=== PATIENT | male | born 1965 | race African-American/Black ===

== ENCOUNTER 2022-11-21 01:43 | Inpatient (IN) | payer OTHER, SELFPAY ==
[2022-11-21] MEDS ORDERED: Morphine 4 MG/ML VIAL SLOW IVP PRN (05:54)
[2022-11-21 05:57] VITALS: BMI 26.4
[2022-11-21] MEDS: Lactated Ringer's 1,000 ML IV SCH ×2 (06:10→15:20)
[2022-11-21] MEDS: Ondansetron PF 4 MG/2 ML Vial IVP PRN ×3 (06:28→18:39)
[2022-11-21 07:12] LABS: SARS-CoV-2 NAA Rapid Test Not Detected (NotDetected)
[2022-11-21] MEDS ORDERED: hydrALAZINE 20 MG/ML VIAL SLOW IVP PRN (08:28)
[2022-11-21] MEDS ORDERED: TETANUS, DIPHTHERIA TOX,ADULT (TDVAX) 0.5 ML VIAL IM ONE (08:28)
[2022-11-21] MEDS ORDERED: MD-Gastroview 120 ML BOT ONE (09:05)
[2022-11-21] MEDS: Pantoprazole 40 MG VIAL IVP SCH (10:04)
[2022-11-21] MEDS: Ketorolac Tromethamine 30 MG/ML VIAL IVP PRN (10:09)
[2022-11-21] MEDS: Morphine 2 MG/ML VIAL SLOW IVP PRN ×2 (12:40→18:42)
[2022-11-21] MEDS ORDERED: Acetaminophen 500 MG TAB PO PRN (16:53)
[2022-11-21] MEDS ORDERED: Ketorolac Tromethamine 30 MG/ML VIAL IVP SCH (17:00)
[2022-11-21] MEDS: Tamsulosin HCl 0.4 MG CAP PO SCH (20:47)
[2022-11-21] MEDS: Methylcellulose 500 MG TAB PO SCH (20:47)
[2022-11-22] MEDS: Lactated Ringer's 1,000 ML IV SCH ×3 (00:18→10:18)
[2022-11-22 06:12] LABS: #Eosinphils 0.1 thou/uL (0.0-0.7); #Lymphocytes 1.1 thou/uL (1.20-3.40); #Monocytes 0.5 thou/uL (0.11-0.59); #Neutrophils 3.1 thou/uL (1.40-6.50); %Basophils 0.4 % (0.0-1.0); %Eosinophils 2.1 % (0.0-10.0); %Lymphocytes 22.9 % (21.0-51.0); %Monocytes 11.3 % (0.0-10.0); %Neutrophils 63.3 % (42.0-75.0); Hemoglobin 10.8 g/dL (14.0-18.0); Mean Corpuscular HGB CONC 33.9 g/dL (32.0-36.0); Mean Corpuscular Hemoglobin 30.7 pg (27.0-31.0); Mean Corpuscular Volume 90.6 fl (78.0-98.0); Mean Platelet Volume 8.6 fL (7.4-10.4); Platelet Count 163 10x3/uL (130-400); RBC Distribution Width 12.2 % (11.5-14.5); Red Blood Cell (RBC) Count 3.52 mill/uL (4.70-6.10); White Blood Cell (WBC) Count 4.8 10x3/uL (4.8-10.8)
[2022-11-22 06:37] LABS: ALT (SGPT) 36 U/L (8-55); AST (SGOT) 45 U/L (5-34); Albumin 3.3 g/dL (3.5-5.0); Alkaline Phosphatase 58 U/L (40-110); Anion Gap 16 mmol/L (10-20); BUN (Urea Nitrogen) 14 mg/dL (8.4-25.7); Bilirubin, Total 0.9 mg/dL (0.2-1.2); Calc. Creatinine Clearance 150 mL/min (70-130); Calcium 9.8 mg/dL (7.8-10.44); Carbon Dioxide 23 mmol/L (22-29); Chloride 104 mmol/L (98-107); Estimated GFR 110; Globulin 3.5 g/dL (2.4-3.5); Glucose 87 mg/dL (70-105); Potassium 3.8 mmol/L (3.5-5.1); Protein, Total 6.8 g/dL (6.0-8.3); Sodium 139 mmol/L (136-145)
[2022-11-22] MEDS: Pantoprazole 40 MG VIAL IVP SCH (09:29)
[2022-11-22] MEDS: Aspirin 81 mg Enteric Coated Tablet PO SCH (09:29)
[2022-11-22] MEDS: Amlodipine 10 MG TAB PO SCH (09:29)
[2022-11-22] MEDS: Spironolactone 25 MG TAB PO SCH (09:29)
[2022-11-22] MEDS: Losartan 25 MG TAB PO SCH (09:30)
[2022-11-22] MEDS: Methylcellulose 500 MG TAB PO SCH ×2 (10:11→20:24)
[2022-11-22] MEDS: Methimazole 5 MG TAB PO SCH (10:11)
[2022-11-22] MEDS: Ketorolac Tromethamine 30 MG/ML VIAL IVP PRN ×2 (11:45→19:12)
[2022-11-22] MEDS: traMADol HCl 50 MG TAB PO PRN (11:45)
[2022-11-22] MEDS: Tamsulosin HCl 0.4 MG CAP PO SCH (20:23)
[2022-11-22] MEDS: Senokot S 8.6-50 MG TAB PO SCH (20:24)
[2022-11-23] MEDS: traMADol HCl 50 MG TAB PO PRN (00:14)
[2022-11-23] MEDS: Senokot S 8.6-50 MG TAB PO SCH ×2 (00:14→09:18)
[2022-11-23 05:56] LABS: #Eosinphils 0.1 thou/uL (0.0-0.7); #Lymphocytes 1.5 thou/uL (1.20-3.40); #Monocytes 0.6 thou/uL (0.11-0.59); #Neutrophils 2.4 thou/uL (1.40-6.50); %Basophils 0.9 % (0.0-1.0); %Eosinophils 1.6 % (0.0-10.0); %Lymphocytes 32.4 % (21.0-51.0); %Monocytes 12.2 % (0.0-10.0); %Neutrophils 52.8 % (42.0-75.0); Hemoglobin 10.2 g/dL (14.0-18.0); Mean Corpuscular HGB CONC 33.6 g/dL (32.0-36.0); Mean Corpuscular Volume 89.5 fl (78.0-98.0); Mean Platelet Volume 8.3 fL (7.4-10.4); Platelet Count 142 10x3/uL (130-400); Red Blood Cell (RBC) Count 3.38 mill/uL (4.70-6.10); White Blood Cell (WBC) Count 4.5 10x3/uL (4.8-10.8)
[2022-11-23 06:12] LABS: Anion Gap 12 mmol/L (10-20); BUN (Urea Nitrogen) 13 mg/dL (8.4-25.7); Calc. Creatinine Clearance 138 mL/min (70-130); Calcium 9.2 mg/dL (7.8-10.44); Carbon Dioxide 27 mmol/L (22-29); Chloride 105 mmol/L (98-107); Estimated GFR 107; Glucose 113 mg/dL (70-105); Magnesium 1.4 mg/dL (1.6-2.6); Phosphorus 4.5 mg/dL (2.3-4.7); Potassium 3.5 mmol/L (3.5-5.1); Sodium 140 mmol/L (136-145)
[2022-11-23] MEDS ORDERED: Potassium Chloride 20 MEQ TAB PO SCH (08:00)
[2022-11-23] MEDS ORDERED: Magnesium 2 GM/50 ML(in water) 4 GM in Premix Bag 1 BAG IVPB SCH (08:00)
[2022-11-23] MEDS ORDERED: Magnesium Sulfate In Water 4 GM in Premix Bag 1 BAG IVPB SCH (09:00)
[2022-11-23] MEDS: Methimazole 5 MG TAB PO SCH (09:17)
[2022-11-23] MEDS: Ketorolac Tromethamine 30 MG/ML VIAL IVP PRN (09:17)
[2022-11-23] MEDS: Methylcellulose 500 MG TAB PO SCH (09:17)
[2022-11-23] MEDS: Aspirin 81 mg Enteric Coated Tablet PO SCH (09:18)
[2022-11-23] MEDS: Amlodipine 10 MG TAB PO SCH (09:18)
[2022-11-23] MEDS: Losartan 25 MG TAB PO SCH (09:18)
[2022-11-23] MEDS: Spironolactone 25 MG TAB PO SCH (09:19)
[2022-11-23] MEDS: Pantoprazole 40 MG VIAL IVP SCH (09:20)
[2022-11-23 12:52] VITALS: BP 124/74; TEMP 97.7
== END 2022-11-23 14:10 | disposition home or self-care (01) | DRG 394 ==
LOC: SURG A 05:38 → OBSVTOIN 05:54
PROVIDERS: ADMIT Specialist; ATTEND Specialist
PROC: 0D9670Z Drainage of Stomach with Drainage Device, Via Natural or Artificial Opening (ICD-10-PCS; principal; 2022-11-21)
DX: K64.9 Unspecified hemorrhoids (principal); K56.609 Unspecified intestinal obstruction, unspecified as to partial versus complete obstruction; K59.03 Drug induced constipation; Z20.822 Contact with and (suspected) exposure to COVID-19; I10 Essential (primary) hypertension; E05.90 Thyrotoxicosis, unspecified without thyrotoxic crisis or storm; Z88.2 Allergy status to sulfonamides; Z79.82 Long term (current) use of aspirin; Z79.899 Other long term (current) drug therapy; Z90.49 Acquired absence of other specified parts of digestive tract; T40.2X5A Adverse effect of other opioids, initial encounter
CPT/HCPCS: 36415; 74018; 74022; 74250; 80048; 80053; 83735; 84100; 85025; C9113; G0378; J1650; J1885; J2270; J2272; J2405; J3475; J7120; Q9963; U0002